=== PATIENT | female | born 1990 | race Caucasian/White ===

== ENCOUNTER 2024-09-26 08:43 | Emergency (ER) | payer OTHER ==
[2024-09-26] MEDS: Ibuprofen 600 MG Tab PO ONE (09:21)
== END 2024-09-26 10:10 | disposition home or self-care (01) ==
LOC: DL.ED 08:43
DX: S66.912A Strain of unspecified muscle, fascia and tendon at wrist and hand level, left hand, initial encounter (principal); W18.39XA Other fall on same level, initial encounter; Y93.89 Activity, other specified; Y99.0 Civilian activity done for income or pay
CPT/HCPCS: 73110; 99283; A9270